=== PATIENT | female | born 1990 | race Caucasian/White ===

== ENCOUNTER 2018-08-23 18:22 | Emergency (ER) | payer BC, OTHER ==
[2018-08-23 18:36] VITALS: RESP 16
[2018-08-23 19:27] LABS: BASO % 0.6 % (0.0-2.0); EOS % 0.2 % (0.0-4.0); HEMOGLOBIN 10.9 g/dL (12.0-16.0); LYMPH # 1.3 K/uL (1.0-4.3); MEAN CELL VOLUME 93.1 fl (81.0-99.0); MEAN CORPUSCULAR HEMOGLOBIN 30.9 pg (27.0-31.0); MEAN CORPUSCULAR HGB CONC 33.1 g/dL (33.0-37.0); MEAN PLATELET VOLUME 7.7 fl (7.2-11.7); MONO # 0.7 K/uL (0.0-0.8); MONO % 16.8 % (0.0-10.0); NEUT # 2.3 K/uL (1.8-7.0); NEUT % 53.4 % (50.0-75.0); RBC 3.53 Mil/uL (3.80-5.20); RED CELL DISTRIBUTION WIDTH 13.3 % (11.5-14.5); WHITE BLOOD COUNT 4.4 K/uL (4.8-10.8)
[2018-08-23 19:37] LABS: ALB/GLOB RATIO 1.2 (1.0-2.1); ALBUMIN 4.3 g/dL (3.5-5.0); ALT/SGPT 18 U/L (9-52); AST/SGOT 30 U/L (14-36); BLOOD UREA NITROGEN 9 mg/dl (7-17); CALCIUM 9.2 mg/dL (8.4-10.2); GFR NON-AFRICAN AMERICAN > 60
[2018-08-23 19:47] LABS: SQUAMOUS EPITHIAL 1 /hpf (0-5); URINE BACTERIA RARE (<OCC); URINE BILIRUBIN NEGATIVE (NEGATIVE); URINE BLOOD SMALL (NEGATIVE); URINE CLARITY SLIGHTY-CLOUDY (Clear); URINE COLOR YELLOW (YELLOW); URINE GLUCOSE (UA) NEG (NEGATIVE); URINE LEUKOCYTE ESTERASE NEG Leu/uL (Negative); URINE PROTEIN NEGATIVE (NEGATIVE); URINE UROBILINOGEN 0.2-1.0 mg/dL (0.2-1.0)
[2018-08-23 20:00] LABS: INR 1.1; PROTHROMBIN TIME 12.9 Seconds (9.8-13.1)
--- NOTE | 2018-08-23 20:28 | ED PDOC ---
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; pt denies PEREZ SOB or radiating pain Past Medical History Reviewed: Historical Data, Nursing Documentation, Vital Signs Vital Signs: Last Vital Signs Temp 98.4 F 08/23/18 18:34 Pulse 75 08/23/18 18:34 Resp 16 08/23/18 18:34 BP 111/65 08/23/18 18:34 Pulse Ox 98 08/23/18 18:34 - Medical History PMH: Rheumatoid Arthritis - Family History Family History: States: Unknown Family Hx - Immunization History Hx Tetanus Toxoid Vaccination: No - Allergies Allergies/Adverse Reactions: Allergies Allergy/AdvReac Type Severity Reaction Status Date / Time No Known Allergies Allergy Verified 08/23/18 18:34 HAN Risk Score for UA/NSTEMI - HAN Risk Score Age > 64: NO 3 or more CAD Risk Factors: NO Known CAD (Stenosis greater than 50%): NO Aspirin use in past 7 days: NO Severe Angina: NO EKG ST changes greater than 0.5mm: NO Positive Cardiac Marker: NO HAN Score: 0 Risk %: 5% Wells Criteria for PE - Wells Criteria for Pulmonary Embolism Clinical Signs and Symptoms of DVT: No P.E is #1 Diagnosis, or Equally Likely: No Heart Rate >100: No Immobilization at least 3 days;Surgery previous 4 weeks: No Previous, objectively diagnosed PE or DVT: No Hemoptysis: No Total Score: 0 Review of Systems ROS Statement: Except As Marked, All Systems Reviewed And Found Negative Cardiovascular: Positive for: Chest Pain Physical Exam - Reviewed Nursing Documentation Reviewed: Yes Vital Signs Reviewed: Yes - Physical Exam Appears: Positive for: Well, Non-toxic, No Acute Distress. Negative for: Uncomfortable, In Acute Distress Head Exam: Positive for: ATRAUMATIC, NORMAL INSPECTION Skin: Positive for: Normal Color, Warm, Dry. Negative for: Diaphoresis, Pallor, Rash Eye Exam: Positive for: Normal appearance, EOMI, PERRL. Negative for: Nystagmus, Periorbital swelling, Periorbital tenderness ENT: Positive for: Normal ENT Inspection Neck: Positive for: Normal, Painless ROM, Supple. Negative for: Decreased ROM Cardiovascular/Chest: Positive for: Regular Rate, Rhythm. Negative for: Chest Non Tender, Edema, Murmur, Bradycardia, Tachycardia, Friction Rub Respiratory: Positive for: Normal Breath Sounds. Negative for: Accessory Muscle Use, Crackles, Rales, Stridor, Wheezing, Respiratory Distress, Plerual Rub Pulses-Carotid (L): 2+ Pulses-Carotid (R): 2+ Pulses-Radial (L): 2+ Pulses-Radial (R): 2+ - Laboratory Results Result Diagrams: 08/23/18 19:22 08/23/18 19:22 Lab Results: PT 12.9 Seconds (9.8-13.1) 08/23/18 19:40 INR 1.1 08/23/18 19:40 APTT 33.0 Seconds (25.6-37.1) 08/23/18 19:40 Troponin I < 0.0120 ng/mL (0.00-0.120) 08/23/18 19:22 Total Bilirubin 0.7 mg/dl (0.2-1.3) 08/23/18 19:22 AST 30 U/L (14-36) 08/23/18 19:22 ALT 18 U/L (9-52) 08/23/18 19:22 Alkaline Phosphatase 58 U/L (38-126) 08/23/18 19:22 Total Protein 7.9 G/DL (6.3-8.2) 08/23/18 19:22 Albumin 4.3 g/dL (3.5-5.0) 08/23/18 19:22 Globulin 3.6 gm/dL (2.2-3.9) 08/23/18 19:22 Albumin/Globulin Ratio 1.2 (1.0-2.1) 08/23/18 19:22 Urine Color Yellow (YELLOW) 08/23/18 19:40 Urine Clarity Slighty-cloudy (Clear) 08/23/18 19:40 Urine pH 7.0 (5.0-8.0) 08/23/18 19:40 Ur Specific [place] 1.013 (1.003-1.030) 08/23/18 19:40 Urine Protein Negative mg/dL (NEGATIVE) 08/23/18 19:40 Urine Glucose (UA) Neg mg/dL (NEGATIVE) 08/23/18 19:40 Urine Ketones Negative mg/dL (NEGATIVE) 08/23/18 19:40 Urine Blood Small (NEGATIVE) 08/23/18 19:40 Urine Nitrate Negative (NEGATIVE) 08/23/18 19:40 Urine Bilirubin Negative (NEGATIVE) 08/23/18 19:40 Urine Urobilinogen 0.2-1.0 mg/dL (0.2-1.0) 08/23/18 19:40 Ur Leukocyte Esterase Neg [place]/uL (Negative) 08/23/18 19:40 Urine RBC (Auto) 4 /hpf (0-3) H 08/23/18 19:40 Urine Microscopic WBC 1 /hpf (0-5) 08/23/18 19:40 Ur Squamous Epith Cells 1 /hpf (0-5) 08/23/18 19:40 Urine Bacteria Rare (<OCC) 08/23/18 19:40 - ECG O2 Sat by Pulse Oximetry: 98 Disposition - Clinical Impression Clinical Impression: Atypical chest pain, Chest pain, non-cardiac - Disposition Referrals: [facility] [Outside] [facility] [Outside] Disposition Time: 21:00 Condition: STABLE Instructions: Costochondritis, Chest Pain, Chest Pain That Is Not Caused by the Heart (DC), Costochondritis (DC) Forms: [employer] ([place])
[2018-08-23 20:52] VITALS: BP 122/67; PULSE 63; TEMP 98.2
--- NOTE | 2018-08-24 10:01 | RAD ---
Date of service: 08/23/2018 HISTORY: cp COMPARISON: No prior. TECHNIQUE: 09/16/2013 FINDINGS: LUNGS: No active pulmonary disease. PLEURA: No significant pleural effusion identified. No pneumothorax apparent. CARDIOVASCULAR: No aortic atherosclerotic calcification present. Normal cardiac size. No pulmonary vascular congestion. OSSEOUS STRUCTURES: Dextroscoliosis-similar VISUALIZED UPPER ABDOMEN: Normal. OTHER FINDINGS: None. IMPRESSION: No interval pathology noted. Similar scoliosis.
--- NOTE | 2018-08-24 11:12 | CARD ---
APPROVED REPORT Date of service: 08/23/2018 EKG Measurement Heart [id number] <Conclusion> Normal sinus rhythm Normal ECG
[2018-08-25 13:17] VITALS: O2SAT 98
== END 2018-08-23 20:52 | disposition home or self-care (01) ==
LOC: H.ER 18:22
DX: R07.89 Other chest pain (principal)